=== PATIENT | female | born 1970 | race Caucasian/White ===

== ENCOUNTER 2019-07-08 13:31 | Inpatient (IN) | payer SELFPAY ==
--- NOTE | 2019-07-08 13:53 | ER Document Report ---
ED Medical Screen (RME) - General Chief Complaint: Breathing Difficulty Stated Complaint: DIFFICULTY BREATHING Time Seen by Provider: 07/08/19 13:49 Primary Care Provider: JOON HAMMER PA-C [Primary Care Provider] - Follow up as needed Notes: 49-year-old female with history of asthma presents for difficulty breathing for the last 3 weeks. Patient states her PCP sent her over. Patient was originally ED 88% in triage and was placed on 2 L with improvement in O2 sats. Decreased lung sounds throughout. Patient also states she has had a cough that is been nonproductive. I have greeted and performed a rapid initial assessment of this patient. A comprehensive ED assessment and evaluation of the patient, analysis of test results and completion of the medical decision making process with be conducted by additional ED providers. - Related Data Allergies/Adverse Reactions: No Known Allergies Allergy (Unverified 06/16/11 15:05) Past Medical History - Past Medical History Cardiac Medical History: Reports: Hx Hypertension Past Surgical History: Reports: Hx Tubal Ligation - Immunizations Hx Diphtheria, Pertussis, Tetanus Vaccination: Yes Doctor's Discharge - Discharge Referrals: JOON HAMMER PA-C [Primary Care Provider] - Follow up as needed
[2019-07-08] MEDS ORDERED: METHYLPREDNISOLONE INJ 125 MG/2 ML SDV IV ONE (13:54)
[2019-07-08] MEDS ORDERED: IPRATROPIUM/ALBUTEROL 0.5-2.5 MG/3 ML AMPUL NEB ONE (13:54)
[2019-07-08 14:39] LABS: ABSOLUTE BASOPHILS # (AUTO) 0.1 10^3/uL (0.0-0.2); ABSOLUTE EOSINOPHILS # (AUTO) 0.1 10^3/uL (0.0-0.6); ABSOLUTE MONOCYTES (AUTO) 0.6 10^3/uL (0.1-1.4); ABSOLUTE NEUT (AUTO) 6.2 10^3/uL (1.7-8.2); BASOPHILS % (AUTO) 0.6 % (0-2); EOSINOPHILS % (AUTO) 1.5 % (0-6); HEMATOCRIT 38.6 % (36.0-47.0); HEMOGLOBIN 12.6 g/dL (12.0-15.5); LYMPHOCYTES % (AUTO) 21.9 % (13-45); MEAN CORPUSCULAR HEMOGLOBIN 27.7 pg (27.0-33.4); MEAN CORPUSCULAR HGB CONC 32.8 g/dL (32.0-36.0); MEAN CORPUSCULAR VOLUME 85 fl (80-97); MONOCYTES % (AUTO) 7.1 % (3-13); PLATELET COUNT 368 10^3/uL (150-450); RED BLOOD COUNT 4.56 10^6/uL (3.72-5.28); RED CELL DISTRIBUTION WIDTH 16.8 % (11.5-14.0); SEGMENTED NEUTROPHILS % (AUTO) 68.9 % (42-78); TOTAL CELLS COUNTED % (AUTO) 100 %
--- NOTE | 2019-07-08 14:47 | RADIOLOGY REPORT (SQ) ---
EXAM DESCRIPTION: CHEST 2 VIEWS COMPLETED DATE/TIME: 07/08/2019 2:37 pm REASON FOR STUDY: cough, dyspnea COMPARISON: None. EXAM PARAMETERS: NUMBER OF VIEWS: two views TECHNIQUE: Digital Frontal and Lateral radiographic views of the chest acquired. RADIATION DOSE: NA LIMITATIONS: none FINDINGS: LUNGS AND PLEURA: No focal consolidation. Mild perihilar interstitial opacities. No pleu ral effusion or pneumothorax. MEDIASTINUM AND HILAR STRUCTURES: No masses or contour abnormalities. HEART AND VASCULAR STRUCTURES: Enlarged cardiac silhouette. BONES: No acute findings. HARDWARE: None in the chest. OTHER: No other significant finding. IMPRESSION: Enlarged cardiac silhouette with prominent interstitium, possible mild interstitial tre a or atypical infection. Recommend correlation with symptoms. No focal consolidation. No pleural e ffusion. TECHNICAL DOCUMENTATION: JOB ID: [id number] [email or web address] All Rights Reserved Reading location - IP/workstation name: [email or web address]
--- NOTE | 2019-07-08 14:53 | EKG REPORT ---
SEVERITY:- NORMAL ECG - SINUS RHYTHM : Confirmed by: Indira Villasenor MD 08-Jul-2019 14:52:22
[2019-07-08 14:55] LABS: ALBUMIN 3.3 g/dL (3.5-5.0); ALKALINE PHOSPHATASE 105 U/L (38-126); ASPARTATE AMINO TRANSFERASE 26 U/L (14-36); BILIRUBIN,TOTAL 0.5 mg/dL (0.2-1.3); BLOOD UREA NITROGEN 8 mg/dL (7-20); CALCIUM 8.5 mg/dL (8.4-10.2); CARBON DIOXIDE 34 mmol/L (22-30); GLUCOSE 267 mg/dL (75-110); POTASSIUM 4.4 mmol/L (3.6-5.0); TOTAL PROTEIN 7.5 g/dL (6.3-8.2)
[2019-07-08 15:00] LABS: CHLORIDE 96 mmol/L (98-107)
[2019-07-08 15:02] LABS: ANION GAP 6 (5-19)
--- NOTE | 2019-07-08 15:13 | ER Document Report ---
ED Respiratory Problem - General Chief Complaint: Shortness Of Breath Stated Complaint: DIFFICULTY BREATHING Time Seen by Provider: 07/08/19 13:49 Primary Care Provider: JOON HAMMER PA-C [PHYSICIAN EDITOR IN CHIEF NEWSPAPER] - Follow up as needed Mode of Arrival: Ambulatory Information source: Patient, [facility] Records Notes: This 49-year-old female patient comes to the emergency room complaining of increasing shortness of breath for the past 2 to 3 weeks. She reports she has had a productive cough until yesterday. It was clear to white sputum and none today. She has never had asthma, COPD, or other respiratory problems in the past. There is been no edema. There is no fever. She did not get a flu shot. She has never been a smoker. Patient states she has past history of hypertension, but has not been on medication in quite some time since she lost her insurance. At triage her pulse oximetry reading was 88% on room air. TRAVEL OUTSIDE OF THE [place] IN LAST 30 DAYS: No - Related Data Allergies/Adverse Reactions: No Known Allergies Allergy (Verified 07/08/19 13:55) Past Medical History - General Information source: Patient, [facility] Records - Social History Smoking Status: Never Smoker Cigarette use (# per day): No Chew tobacco use (# tins/day): No Smoking Education Provided: No Frequency of alcohol use: Occasional Drug Abuse: None Lives with: Family Family History: Reviewed & Not Pertinent Patient has suicidal ideation: No Patient has homicidal ideation: No - Past Medical History Cardiac Medical History: Reports: Hx Hypertension Past Surgical History: Reports: Hx Tubal Ligation - Immunizations Hx Diphtheria, Pertussis, Tetanus Vaccination: Yes Review of Systems - Review of Systems Constitutional: No symptoms reported EENT: No symptoms reported Cardiovascular: Dyspnea Respiratory: Cough, Short of breath Gastrointestinal: No symptoms reported Genitourinary: No symptoms reported Musculoskeletal: No symptoms reported Skin: No symptoms reported Hematologic/Lymphatic: No symptoms reported Neurological/Psychological: No symptoms reported Physical Exam - Vital signs Vitals: Temp Pulse Resp BP Pulse Ox 98.0 F 98 28 H 156/76 H 89 L 07/08/19 13:48 07/08/19 13:48 07/08/19 13:48 07/08/19 13:48 07/08/19 13:48 Interpretation: Hypoxic, Tachypneic - General General appearance: Alert, Anxious In distress: Mild - HEENT Head: Normocephalic, Atraumatic Eyes: Normal Pupils: PERRL - Respiratory Respiratory status: Tachypnea Breath sounds: Wheezing - Inspiratory/expiratory wheezes - Cardiovascular Rhythm: Regular Heart sounds: Normal auscultation Murmur: No - Abdominal Inspection: Morbidly Obese Bowel sounds: Normal Tenderness: Nontender - Back Back: Normal - Extremities General upper extremity: Normal inspection General lower extremity: Normal inspection - Neurological Neuro grossly intact: Yes - Psychological Associated symptoms: Normal affect, Normal mood - Skin Skin Temperature: Warm Skin Moisture: Dry Skin Color: Normal Course - Vital Signs Vital signs: Temp Pulse Resp BP Pulse Ox 98.0 F 98 28 H 156/76 H 89 L 07/08/19 13:48 07/08/19 13:48 07/08/19 13:48 07/08/19 13:48 07/08/19 13:48 - Laboratory Result Diagrams: 07/08/19 14:15 07/08/19 14:15 Laboratory results interpreted by me: 07/08/19 07/08/19 07/08/19 14:15 14:15 14:15 RDW 16.8 H Carbonic Acid ABG pCO2 ABG pO2 ABG HCO3 ABG Total CO2 ABG O2 Saturation Sodium 135.8 L Chloride 96 L Carbon Dioxide 34 H Glucose 267 H NT-Pro-B Natriuret Pep 308 H Albumin 3.3 L 07/08/19 15:56 RDW Carbonic Acid 1.45 H ABG pCO2 48.2 H ABG pO2 67.1 L ABG HCO3 31.1 H ABG Total CO2 32.6 H ABG O2 Saturation 93.6 L Sodium Chloride Carbon Dioxide Glucose NT-Pro-B Natriuret Pep Albumin - Diagnostic Test Radiology reviewed: Image reviewed, Reports reviewed - Chest x-ray shows cardiac enlargement with interstitial edema versus atypical infection. - EKG Interpretation by Me EKG shows normal: Sinus rhythm, [place], Intervals, QRS Complexes, ST-T Waves Rate: Normal - 72 Rhythm: NSR - Consults Dr. Tracey Time consulted: 16:15 Consulted provider: will come to ER Discharge - Discharge Clinical Impression: Acute bronchitis with bronchospasm, Hypoxemia requiring supplemental oxygen, P rimary atypical interstitial pneumonia Condition: Stable Disposition: ADMITTED INPATIENT Admitting Provider: Alexy (Hospitalist) Unit Admitted: Medical Floor Referrals: JOON HAMMER PA-C [PHYSICIAN EDITOR IN CHIEF NEWSPAPER] - Follow up as needed
[2019-07-08] MEDS ORDERED: LEVOFLOXACIN 750 MG/D5W RTU 750 MG/150 ML RTUPB IV ONE (16:07)
[2019-07-08 16:12] LABS: ARTERIAL BLOOD BASE EXCESS 5.8 mmol/L; ARTERIAL BLOOD H2CO3 1.45 mmol/L (1.05-1.35); ARTERIAL BLOOD HCO3 31.1 mmol/L (20-24); ARTERIAL BLOOD O2 SATURATION 93.6 % (94-98); ARTERIAL BLOOD PCO2 48.2 mmHg (35-45); ARTERIAL BLOOD PH 7.43 (7.35-7.45); ARTERIAL BLOOD PO2 67.1 mmHg (80-100); ARTERIAL BLOOD TOTAL CO2 32.6 mmol/L (21-25)
[2019-07-08 16:13] LABS: ARTERIAL BLOOD FIO2 ROOM AIR
[2019-07-08] MEDS: MAGNESIUM SULFATE/D5W 1 GM/100 ML RTUPB IV SCH ×2 (16:14→17:53)
[2019-07-08] MEDS ORDERED: MAG HYDROX/AL HYDROX/SIMETH SUSP 30 ML UDCUP PO PRN (17:47)
[2019-07-08] MEDS ORDERED: ONDANSETRON HCL INJ/PF 4 MG/2 ML SDV IV PRN (17:47)
[2019-07-08] MEDS ORDERED: ACETAMINOPHEN 325 MG TABLET PO PRN (17:47)
[2019-07-08] MEDS ORDERED: METOPROLOL TARTRATE PF/INJ 5 MG/5 ML SDV IV PRN (18:49)
--- NOTE | 2019-07-08 18:51 | PDOC H&P ---
History of Present Illness Admission Date/PCP: 07/08/19 16:22 KALIN REID History of Present Illness: RHIANNA NUNO is a 49 year old female past medical history of untreated asthma, morbid obesity, untreated hypertension, presenting to ED complaining of worsening shortness of breath for the last 2 to 3 days associated with productive cough which has turned into nonproductive cough as of yesterday. Denies any recent travel but stating that several of her grandkids have been sick around her. Denies any fever, chills, chest pain, nausea, vomiting, diarrhea, constipation, weight changes, headache, numbness, tingling or any urinary symptoms. In ED he was found to be saturating 88% on room air and hospital was consulted for admission. Past Medical History Cardiac Medical History: Reports: Hypertension Past Surgical History Past Surgical History: Reports: Tubal Ligation Social History Lives with: Family Smoking Status: Never Smoker Electronic Cigarette use?: No Family History Family History: Reviewed & Not Pertinent Parental Family History Reviewed: Yes Children Family History Reviewed: Yes Sibling(s) Family History Reviewed.: Yes Medication/Allergy Home Medications: No Home Medications 07/08/19 Allergies/Adverse Reactions: No Known Allergies Allergy (Verified 07/08/19 13:55) Physical Exam Vital Signs: Temp Pulse Resp BP Pulse Ox 98.0 F 98 28 H 156/76 H 89 L 07/08/19 13:48 07/08/19 13:48 07/08/19 13:48 07/08/19 13:48 07/08/19 13:48 Intake & Output 07/07/19 07/08/19 07/09/19 06:59 06:59 06:59 Intake Total 100 Balance 100 Weight 133 kg General appearance: PRESENT: morbidly obese Head exam: PRESENT: atraumatic, normocephalic Respiratory exam: PRESENT: clear to auscultation antonella. ABSENT: rales, rhonchi, wheezes Cardiovascular exam: PRESENT: RRR. ABSENT: diastolic murmur, rubs, systolic murmur Pulses: PRESENT: normal dorsalis pedis pul GI/Abdominal exam: PRESENT: normal bowel sounds, soft. ABSENT: distended, guarding, mass, organolmegaly, rebound, tenderness Neurological exam: PRESENT: alert, awake, oriented to person, oriented to place, oriented to time, oriented to situation, CN II-XII grossly intact. ABSENT: motor sensory deficit Results Laboratory Results: 07/08/19 14:15 07/08/19 14:15 07/08/19 07/08/19 07/08/19 14:15 14:15 15:56 WBC 9.0 RBC 4.56 Hgb 12.6 Hct 38.6 MCV 85 MCH 27.7 MCHC 32.8 RDW 16.8 H Plt Count 368 Seg Neutrophils % 68.9 Carbonic Acid 1.45 H HCO3/H2CO3 Ratio 21:1 ABG pH 7.43 ABG pCO2 48.2 H ABG pO2 67.1 L ABG HCO3 31.1 H ABG O2 Saturation 93.6 L ABG Base Excess 5.8 FiO2 ROOM AIR Sodium 135.8 L Potassium 4.4 Chloride 96 L Carbon Dioxide 34 H Anion Gap 6 BUN 8 Creatinine 0.52 Est GFR ( Amer) > 60 Glucose 267 H Calcium 8.5 Total Bilirubin 0.5 AST 26 Alkaline Phosphatase 105 Total Protein 7.5 Albumin 3.3 L 07/08/19 07/08/19 14:15 14:15 Troponin I 0.016 NT-Pro-B Natriuret Pep 308 H Impressions: Chest X-Ray 07/08/19 13:54 IMPRESSION: Enlarged cardiac silhouette with prominent interstitium, possible mild interstitial edema or atypical infection. Recommend correlation with symptoms. No focal consolidation. No pleural effusion. Assessment and Plan - Diagnosis (1) Acute respiratory failure with hypoxemia Is this a current diagnosis for this admission?: Yes Plan: Likely due to asthma exacerbation called by recent upper respiratory infection. Admit to telemetry, IV steroids, empiric IV antibiotics, duo nebs, ICS, LABA, LABA. (2) Morbid obesity Is this a current diagnosis for this admission?: Yes Plan: BMI 58.6. Denies any history of hypothyroidism. Denies any symptoms of hypothyroidism. Diet and lifestyle modification recommended. Will obtain TSH. (3) Upper respiratory infection Is this a current diagnosis for this admission?: Yes Plan: Plan as per #1. (4) Asthma exacerbation Qualifiers: Asthma severity: moderate Is this a current diagnosis for this admission?: Yes Plan: History of untreated asthma. Denies ever being hospitalized or intubated for asthma exacerbation. Plan as per 1.
[2019-07-08] MEDS: IPRATROPIUM/ALBUTEROL 0.5-2.5 MG/3 ML AMPUL NEB SCH (20:23)
[2019-07-08] MEDS: METHYLPREDNISOLONE INJ 40 MG/1 ML SDV IV SCH (21:38)
[2019-07-08] MEDS: FAMOTIDINE 20 MG TABLET PO SCH (21:39)
[2019-07-08] MEDS: HYDRALAZINE HCL INJ/PF 20 MG/1 ML SDV IV PRN (21:39)
[2019-07-09] MEDS: METHYLPREDNISOLONE INJ 40 MG/1 ML SDV IV SCH ×3 (05:03→21:36)
[2019-07-09] MEDS: HYDRALAZINE HCL INJ/PF 20 MG/1 ML SDV IV PRN ×2 (05:03→21:36)
[2019-07-09 06:16] LABS: ABSOLUTE BASOPHILS # (AUTO) 0.1 10^3/uL (0.0-0.2); ABSOLUTE LYMPHOCYTES (AUTO) 1.2 10^3/uL (0.5-4.7); ABSOLUTE MONOCYTES (AUTO) 0.2 10^3/uL (0.1-1.4); ABSOLUTE NEUT (AUTO) 12.6 10^3/uL (1.7-8.2); BASOPHILS % (AUTO) 0.5 % (0-2); HEMATOCRIT 41.7 % (36.0-47.0); HEMOGLOBIN 13.3 g/dL (12.0-15.5); LYMPHOCYTES % (AUTO) 8.7 % (13-45); MEAN CORPUSCULAR HGB CONC 31.9 g/dL (32.0-36.0); MEAN CORPUSCULAR VOLUME 85 fl (80-97); MONOCYTES % (AUTO) 1.3 % (3-13); PLATELET COUNT 431 10^3/uL (150-450); RED BLOOD COUNT 4.92 10^6/uL (3.72-5.28); RED CELL DISTRIBUTION WIDTH 17.1 % (11.5-14.0); SEGMENTED NEUTROPHILS % (AUTO) 89.5 % (42-78); TOTAL CELLS COUNTED % (AUTO) 100 %; WHITE BLOOD COUNT 14.1 10^3/uL (4.0-10.5)
[2019-07-09 06:38] LABS: CHOLESTEROL 230.55 mg/dL (0-200); TRIGLYCERIDES 145 mg/dL (<150)
[2019-07-09 06:49] LABS: DIRECT LDL 165 mg/dL (<100)
[2019-07-09] MEDS ORDERED: LISINOPRIL 10 MG TABLET PO SCH ×2 (08:00→18:00)
[2019-07-09] MEDS: IPRATROPIUM/ALBUTEROL 0.5-2.5 MG/3 ML AMPUL NEB SCH ×3 (08:33→20:09)
[2019-07-09] MEDS: LEVOFLOXACIN 500 MG TABLET PO SCH (09:22)
[2019-07-09] MEDS: DOCUSATE SODIUM 100 MG CAPSULE PO SCH (09:26)
[2019-07-09] MEDS: ENOXAPARIN SODIUM INJ 40 MG/0.4 ML DISP.SYRIN SUBCUT SCH (09:26)
[2019-07-09] MEDS: FAMOTIDINE 20 MG TABLET PO SCH ×2 (09:26→21:37)
[2019-07-09] MEDS ORDERED: DEXTROSE 40% GEL 15 GM TUBE PO PRN ×4 (12:11→17:29)
[2019-07-09] MEDS ORDERED: GLUCAGON,HUMAN RECOMB 1 MG INJ IM PRN ×2 (12:11→17:29)
[2019-07-09] MEDS ORDERED: DEXTROSE 50%-WATER 25 GM/50 ML DISP.SYRIN IV PRN ×4 (12:11→17:29)
--- NOTE | 2019-07-09 12:18 | PDOC PROGRESS REPORT ---
Subjective Progress Note for:: 07/09/19 Subjective:: RHIANNA NUNO is a 49 year old female past medical history of untreated asthma, morbid obesity, untreated hypertension, presenting to ED complaining of worsening shortness of breath for the last 2 to 3 days associated with productive cough which has turned into nonproductive cough as of yesterday. Denies any recent travel but stating that several of her grandkids have been sick around her. Denies any fever, chills, chest pain, nausea, vomiting, diarrhea, constipation, weight changes, headache, numbness, tingling or any urinary symptoms. In ED he was found to be saturating 88% on room air and hospital was consulted for admission. 07/09/2019. No acute events overnight. Comfortably sitting in bed in no apparent distress on supplemental oxygen, sitting when she tried to walk to the restroom she noted to get short of breath otherwise denies any fever, chills, nausea, vomiting, diarrhea, constipation or any urinary symptoms. P.o. tolerant. Having normal bowel and bladder movement. Cough is improving. Reason For Visit: ACUTE HYPOXIC RESPIRATORY FAILURE Physical Exam Vital Signs: Temp Pulse Resp BP Pulse Ox 97.8 F 114 H 18 126/56 H 94 07/09/19 08:00 07/09/19 08:33 07/09/19 08:33 07/09/19 08:00 07/09/19 08:33 Intake & Output 07/08/19 07/09/19 07/10/19 06:59 06:59 06:59 Intake Total 800 Balance 800 Weight 131.7 kg General appearance: PRESENT: morbidly obese Head exam: PRESENT: atraumatic, normocephalic Respiratory exam: PRESENT: decreased breath sounds, prolonged expiratory phas, wheezes. ABSENT: rales, rhonchi Cardiovascular exam: PRESENT: RRR. ABSENT: diastolic murmur, rubs, systolic murmur GI/Abdominal exam: PRESENT: normal bowel sounds, soft. ABSENT: distended, guarding, mass, organolmegaly, rebound, tenderness Neurological exam: PRESENT: alert, awake, oriented to person, oriented to place, oriented to time, oriented to situation, CN II-XII grossly intact. ABSENT: motor sensory deficit Results Laboratory Results: 07/09/19 04:41 07/08/19 14:15 07/08/19 07/08/19 07/08/19 14:15 14:15 15:56 WBC 9.0 RBC 4.56 Hgb 12.6 Hct 38.6 MCV 85 MCH 27.7 MCHC 32.8 RDW 16.8 H Plt Count 368 Seg Neutrophils % 68.9 Carbonic Acid 1.45 H HCO3/H2CO3 Ratio 21:1 ABG pH 7.43 ABG pCO2 48.2 H ABG pO2 67.1 L ABG HCO3 31.1 H ABG O2 Saturation 93.6 L ABG Base Excess 5.8 FiO2 ROOM AIR Sodium 135.8 L Potassium 4.4 Chloride 96 L Carbon Dioxide 34 H Anion Gap 6 BUN 8 Creatinine 0.52 Est GFR ( Amer) > 60 Glucose 267 H Calcium 8.5 Magnesium Total Bilirubin 0.5 AST 26 Alkaline Phosphatase 105 Total Protein 7.5 Albumin 3.3 L Triglycerides Cholesterol LDL Cholesterol Direct VLDL Cholesterol HDL Cholesterol Lipase TSH 07/09/19 07/09/19 07/09/19 04:41 04:41 04:41 WBC 14.1 H RBC 4.92 Hgb 13.3 Hct 41.7 MCV 85 MCH 27.0 MCHC 31.9 L RDW 17.1 H Plt Count 431 Seg Neutrophils % 89.5 H Carbonic Acid HCO3/H2CO3 Ratio ABG pH ABG pCO2 ABG pO2 ABG HCO3 ABG O2 Saturation ABG Base Excess FiO2 Sodium Potassium Chloride Carbon Dioxide Anion Gap BUN Creatinine Est GFR ( Amer) Glucose Calcium Magnesium 2.3 Total Bilirubin AST Alkaline Phosphatase Total Protein Albumin Triglycerides 145 Cholesterol 230.55 H LDL Cholesterol Direct 165 H VLDL Cholesterol 29.0 HDL Cholesterol 53 Lipase 101.5 TSH 0.72 07/08/19 07/08/19 14:15 14:15 Troponin I 0.016 NT-Pro-B Natriuret Pep 308 H Impressions: Chest X-Ray 07/08/19 13:54 IMPRESSION: Enlarged cardiac silhouette with prominent interstitium, possible mild interstitial edema or atypical infection. Recommend correlation with symptoms. No focal consolidation. No pleural effusion. Assessment and Plan - Diagnosis (1) Acute respiratory failure with hypoxemia Is this a current diagnosis for this admission?: Yes Plan: Improving. SPO2 WNL on 2 L. Still complaining of dyspnea on exertion. Likely due to asthma exacerbation called by recent upper respiratory infection. Continue IV steroids, empiric antibiotics, duo nebs, ICS, LABA, LABA, incentive spirometry, pulmonary toileting. (2) Morbid obesity Is this a current diagnosis for this admission?: Yes Plan: BMI 58.6. TSH WNL. Diet and lifestyle modification recommended. Likely candidate for bariatric intervention. (3) Upper respiratory infection Is this a current diagnosis for this admission?: Yes Plan: Plan as per #1. Will obtain rapid influenza. (4) Asthma exacerbation Qualifiers: Asthma severity: moderate Is this a current diagnosis for this admission?: Yes Plan: History of untreated asthma. Denies ever being hospitalized or intubated for asthma exacerbation. Plan as per 1. (5) Diabetes mellitus Qualifiers: Diabetes mellitus type: type 2 Is this a current diagnosis for this admission?: Yes Plan: Newly diagnosed. Hemoglobin A1c 9.7. Unfortunate patient will not be a candidate for insulin therapy due to financial reasons. We will start on metformin 500 mg p.o. twice daily to be uptitrated 2000 mg p.o. twice daily. We will start on glyburide 5 mg p.o. twice daily. Diabetic diet, sliding scale insulin, Accu-Chek, hypoglycemic protocol. Diabetic education. (6) Hypercholesterolemia Is this a current diagnosis for this admission?: Yes Plan: ASCVD risk score of 10%. We will start on high intensity statin. Outpatient PCP follow-up for LFT monitoring. (7) Hypertension Is this a current diagnosis for this admission?: Yes Plan: History of uncontrolled hypertension for financial reasons. Given newly diagnosed diabetes will start on CINDI. Monitor vitals. Adjust meds as needed. Outpatient PCP follow-up.
[2019-07-09] MEDS: ASPIRIN 81 MG TABLET, CHEWABLE PO SCH (14:39)
[2019-07-09] MEDS ORDERED: INSULIN LISPRO 100 UNIT/ML 3 ML VIAL SUBCUT SCH (16:00)
[2019-07-09] MEDS: METFORMIN HCL 500 MG TABLET PO SCH (16:55)
[2019-07-09] MEDS: GLYBURIDE 5 MG TABLET PO SCH (16:55)
[2019-07-09 17:03] LABS: A TYPE INFLUENZA AG NEGATIVE (NEGATIVE); B INFLUENZA AG NEGATIVE (NEGATIVE)
[2019-07-09] MEDS: INSULIN LISPRO 100 UNIT/ML 3 ML VIAL SUBCUT SCH ×2 (18:37→21:37)
[2019-07-09] MEDS ORDERED: INSULIN GLARGINE,HUM.REC.ANLOG 1,000 UNIT/10 ML VIAL (PYX) SUBCUT ONE (18:41)
[2019-07-09] MEDS: INSULIN GLARGINE,HUM.REC.ANLOG 1,000 UNIT/10 ML VIAL SUBCUT SCH (18:42)
[2019-07-09 19:02] LABS: APPEARANCE,URINE CLEAR; BILIRUBIN,URINE NEGATIVE (NEGATIVE); COLOR,URINE STRAW; GLUCOSE, URINE >=500 mg/dL (NEGATIVE); KETONES,URINE NEGATIVE (NEGATIVE); LEUKOCYTE ESTERASE,URINE NEGATIVE (NEGATIVE); NITRITE,URINE NEGATIVE (NEGATIVE); PROTEIN,URINE 30 mg/dL (NEGATIVE); URINE SPECIFIC GRAVITY 1.018; UROBILINOGEN,URINE NEGATIVE mg/dL (<2.0)
[2019-07-09 19:14] LABS: URINE CREATININE 37.7 mg/dL (15-278); URINE PROTEIN 28.1 mg/dL (<12)
[2019-07-10] MEDS: METHYLPREDNISOLONE INJ 40 MG/1 ML SDV IV SCH ×3 (05:03→21:48)
[2019-07-10 06:12] LABS: ABSOLUTE LYMPHOCYTES (AUTO) 1.3 10^3/uL (0.5-4.7); ABSOLUTE MONOCYTES (AUTO) 0.6 10^3/uL (0.1-1.4); ABSOLUTE NEUT (AUTO) 17.3 10^3/uL (1.7-8.2); BASOPHILS % (AUTO) 0.1 % (0-2); HEMATOCRIT 40.6 % (36.0-47.0); HEMOGLOBIN 13.2 g/dL (12.0-15.5); LYMPHOCYTES % (AUTO) 6.8 % (13-45); MEAN CORPUSCULAR HEMOGLOBIN 27.5 pg (27.0-33.4); MEAN CORPUSCULAR HGB CONC 32.4 g/dL (32.0-36.0); MEAN CORPUSCULAR VOLUME 85 fl (80-97); MONOCYTES % (AUTO) 3.2 % (3-13); PLATELET COUNT 451 10^3/uL (150-450); RED BLOOD COUNT 4.79 10^6/uL (3.72-5.28); RED CELL DISTRIBUTION WIDTH 17.2 % (11.5-14.0); SEGMENTED NEUTROPHILS % (AUTO) 89.9 % (42-78); TOTAL CELLS COUNTED % (AUTO) 100 %; WHITE BLOOD COUNT 19.3 10^3/uL (4.0-10.5)
[2019-07-10] MEDS: IPRATROPIUM/ALBUTEROL 0.5-2.5 MG/3 ML AMPUL NEB SCH ×3 (08:20→19:42)
[2019-07-10] MEDS ORDERED: CARVEDILOL 6.25 MG TABLET ONE (08:26)
[2019-07-10] MEDS: INSULIN LISPRO 100 UNIT/ML 3 ML VIAL SUBCUT SCH ×4 (08:30→21:48)
[2019-07-10] MEDS: METFORMIN HCL 500 MG TABLET PO SCH ×2 (08:32→16:27)
[2019-07-10] MEDS: GLYBURIDE 5 MG TABLET PO SCH ×2 (08:32→16:27)
[2019-07-10] MEDS: CARVEDILOL 6.25 MG TABLET PO SCH ×2 (08:48→21:48)
[2019-07-10] MEDS: DOCUSATE SODIUM 100 MG CAPSULE PO SCH (10:59)
[2019-07-10] MEDS: ASPIRIN 81 MG TABLET, CHEWABLE PO SCH (11:00)
[2019-07-10] MEDS: ENOXAPARIN SODIUM INJ 40 MG/0.4 ML DISP.SYRIN SUBCUT SCH (11:00)
[2019-07-10] MEDS: INSULIN GLARGINE,HUM.REC.ANLOG 1,000 UNIT/10 ML VIAL SUBCUT SCH (11:00)
[2019-07-10] MEDS: LEVOFLOXACIN 500 MG TABLET PO SCH (11:00)
[2019-07-10] MEDS: LISINOPRIL 10 MG TABLET PO SCH (11:00)
[2019-07-10] MEDS: FAMOTIDINE 20 MG TABLET PO SCH ×2 (11:12→21:00)
--- NOTE | 2019-07-10 13:40 | PDOC PROGRESS REPORT ---
Subjective Progress Note for:: 07/10/19 Subjective:: RHIANNA NUNO is a 49 year old female past medical history of untreated asthma, morbid obesity, untreated hypertension, presenting to ED complaining of worsening shortness of breath for the last 2 to 3 days associated with productive cough which has turned into nonproductive cough as of yesterday. Denies any recent travel but stating that several of her grandkids have been sick around her. Denies any fever, chills, chest pain, nausea, vomiting, diarrhea, constipation, weight changes, headache, numbness, tingling or any urinary symptoms. In ED he was found to be saturating 88% on room air and hospital was consulted for admission. 07/09/2019. No acute events overnight. Comfortably sitting in bed in no apparent distress on supplemental oxygen, sitting when she tried to walk to the restroom she noted to get short of breath otherwise denies any fever, chills, nausea, vomiting, diarrhea, constipation or any urinary symptoms. P.o. tolerant. Having normal bowel and bladder movement. Cough is improving. 07/10/2019. No acute events overnight. Comfortably sitting resting with no apparent distress, still requiring supplemental oxygen, gets short of breath off oxygen, denies any fever, chills, nausea, vomiting, diarrhea, constipation or any urinary symptoms. Reason For Visit: ACUTE HYPOXIC RESPIRATORY FAILURE Physical Exam Vital Signs: Temp Pulse Resp BP Pulse Ox 97.4 F 101 H 19 134/57 H 93 07/10/19 03:49 07/10/19 08:20 07/10/19 08:20 07/10/19 03:49 07/10/19 08:20 Intake & Output 07/09/19 07/10/19 07/11/19 06:59 06:59 06:59 Intake Total 800 1740 Output Total 1200 Balance 800 540 Weight 131.7 kg 133.9 kg General appearance: PRESENT: morbidly obese Head exam: PRESENT: atraumatic, normocephalic Respiratory exam: PRESENT: clear to auscultation antonella. ABSENT: rales, rhonchi, wheezes Cardiovascular exam: PRESENT: RRR. ABSENT: diastolic murmur, rubs, systolic murmur GI/Abdominal exam: PRESENT: normal bowel sounds, soft. ABSENT: distended, guarding, mass, organolmegaly, rebound, tenderness Neurological exam: PRESENT: alert, awake, oriented to person, oriented to place, oriented to time, oriented to situation, CN II-XII grossly intact. ABSENT: motor sensory deficit Results Laboratory Results: 07/10/19 04:56 07/08/19 14:15 07/09/19 07/10/19 18:27 04:56 WBC 19.3 H RBC 4.79 Hgb 13.2 Hct 40.6 MCV 85 MCH 27.5 MCHC 32.4 RDW 17.2 H Plt Count 451 H Seg Neutrophils % 89.9 H Urine Color STRAW Urine Appearance CLEAR Urine pH 6.0 Ur Specific [place] 1.018 Urine Protein 30 H Urine Glucose (UA) >=500 H Urine Ketones NEGATIVE Urine Blood NEGATIVE Urine Nitrite NEGATIVE Ur Leukocyte Esterase NEGATIVE Urine WBC (Auto) 0 07/08/19 07/08/19 07/09/19 14:15 14:15 12:50 Troponin I 0.016 0.016 NT-Pro-B Natriuret Pep 308 H Impressions: Chest X-Ray 07/08/19 13:54 IMPRESSION: Enlarged cardiac silhouette with prominent interstitium, possible mild interstitial edema or atypical infection. Recommend correlation with symptoms. No focal consolidation. No pleural effusion. Assessment and Plan - Diagnosis (1) Acute respiratory failure with hypoxemia Is this a current diagnosis for this admission?: Yes Plan: Improving. SPO2 WNL on 2 L. Still complaining of dyspnea on exertion. Likely due to asthma exacerbation caused by recent upper respiratory infection. Continue IV steroids, empiric antibiotics, duo nebs, ICS, LABA, LABA, incentive spirometry, pulmonary toileting. Note. Patient may also have underlying CAD or CHF. Patient very high risk for CAD. Given family history of CAD, morbid obesity, hypertension, hyperlipidemia and diabetes. Patient presenting with troponin of 0.016 and a BNP of 666 and chest x-ray suggestive of cardiomegaly. EKG sinus rhythm. Given above history I consulted Dr. Serna psychiatric np for possible inpatient further work-up for risk stratification. Based on my conversation with Dr. Corona he suggested that patient can get a 2D echo on this admission and he will follow her as outpatient for further m anagement. (2) Morbid obesity Is this a current diagnosis for this admission?: Yes Plan: BMI 58.6. TSH WNL. Diet and lifestyle modification recommended. Likely candidate for bariatric intervention. (3) Upper respiratory infection Is this a current diagnosis for this admission?: Yes Plan: Plan as per #1. Will obtain rapid influenza. (4) Asthma exacerbation Qualifiers: Asthma severity: moderate Is this a current diagnosis for this admission?: Yes Plan: History of untreated asthma. Denies ever being hospitalized or intubated for asthma exacerbation. Plan as per 1. (5) Diabetes mellitus Qualifiers: Diabetes mellitus type: type 2 Is this a current diagnosis for this admission?: Yes Plan: Newly diagnosed. Hemoglobin A1c 9.7. Improving. Not optimized. Likely worsened due to recent addition of IV steroids for asthma exacerbation. Unfortunately patient will not be a candidate for insulin therapy due to financial reasons. We will start on metformin 500 mg p.o. twice daily to be uptitrated 2000 mg p.o. twice daily. We will start on glyburide 5 mg p.o. twice daily. Diabetic diet, basal insulin, sliding scale insulin, Accu-Chek, hypoglycemic protocol. Diabetic education. (6) Hypercholesterolemia Is this a current diagnosis for this admission?: Yes Plan: ASCVD risk score of 10%. We will start on high intensity statin. Outpatient PCP follow-up for LFT monitoring. (7) Hypertension Is this a current diagnosis for this admission?: Yes Plan: Improving. Not optimized. History of uncontrolled hypertension for financial reasons. Continue lisinopril 40 mg p.o. daily. We will add low-dose carvedilol. Monitor vitals. Adjust meds as needed. Outpatient PCP follow-up.
[2019-07-11] MEDS: METHYLPREDNISOLONE INJ 40 MG/1 ML SDV IV SCH (05:32)
[2019-07-11] MEDS: IPRATROPIUM/ALBUTEROL 0.5-2.5 MG/3 ML AMPUL NEB SCH ×3 (07:48→19:48)
[2019-07-11] MEDS: INSULIN LISPRO 100 UNIT/ML 3 ML VIAL SUBCUT SCH ×4 (07:55→21:53)
[2019-07-11] MEDS: METFORMIN HCL 500 MG TABLET PO SCH ×2 (07:55→17:43)
[2019-07-11] MEDS: GLYBURIDE 5 MG TABLET PO SCH ×2 (07:55→17:43)
[2019-07-11] MEDS: FAMOTIDINE 20 MG TABLET PO SCH ×2 (10:54→21:31)
[2019-07-11] MEDS: DOCUSATE SODIUM 100 MG CAPSULE PO SCH (10:54)
[2019-07-11] MEDS: ENOXAPARIN SODIUM INJ 40 MG/0.4 ML DISP.SYRIN SUBCUT SCH (10:54)
[2019-07-11] MEDS: ASPIRIN 81 MG TABLET, CHEWABLE PO SCH (11:10)
[2019-07-11] MEDS: LISINOPRIL 10 MG TABLET PO SCH (11:10)
[2019-07-11] MEDS: CARVEDILOL 6.25 MG TABLET PO SCH ×2 (11:10→21:32)
[2019-07-11] MEDS: LEVOFLOXACIN 500 MG TABLET PO SCH (11:10)
[2019-07-11] MEDS: INSULIN GLARGINE,HUM.REC.ANLOG 1,000 UNIT/10 ML VIAL SUBCUT SCH (11:11)
[2019-07-11] MEDS ORDERED: INFLUENZA QUAD (6MOS+) 2019-20 VAC 0.5 ML SYR IM ONE (14:00)
--- NOTE | 2019-07-11 17:58 | PDOC PROGRESS REPORT ---
Subjective Progress Note for:: 07/11/19 Subjective:: Patient feels well and ready to go home. Patient denies any shortness of breath at the moment. Patient would also like to try out oral anti-glycemic medications at the moment and hold off on insulin for now given financial difficulties. Reason For Visit: ACUTE HYPOXIC RESP FAILURE, NEW ONSET DM Physical Exam Vital Signs: Temp Pulse Resp BP Pulse Ox 97.8 F 87 16 146/82 H 93 07/11/19 16:00 07/11/19 16:00 07/11/19 16:00 07/11/19 16:00 07/11/19 16:00 Intake & Output 07/10/19 07/11/19 07/12/19 06:59 06:59 06:59 Intake Total 1740 1850 1181 Output Total 1200 1520 Balance 351 087 8906 Weight 133.9 kg 135 kg 135 kg General appearance: PRESENT: no acute distress, cooperative Head exam: PRESENT: atraumatic Neck exam: ABSENT: JVD Respiratory exam: PRESENT: clear to auscultation antonella, unlabored. ABSENT: tachypnea, wheezes Cardiovascular exam: PRESENT: RRR, +S1, +S2. ABSENT: tachycardia GI/Abdominal exam: PRESENT: soft. ABSENT: rebound, rigid, tenderness Neurological exam: PRESENT: alert, awake Results Laboratory Results: 07/10/19 04:56 07/08/19 14:15 07/08/19 07/08/19 07/09/19 14:15 14:15 12:50 Troponin I 0.016 0.016 NT-Pro-B Natriuret Pep 308 H Impressions: Chest X-Ray 07/08/19 13:54 IMPRESSION: Enlarged cardiac silhouette with prominent interstitium, possible mild interstitial edema or atypical infection. Recommend correlation with symptoms. No focal consolidation. No pleural effusion. Assessment and Plan - Diagnosis (1) Acute respiratory failure with hypoxemia Is this a current diagnosis for this admission?: Yes Plan: Improving. SPO2 WNL on 2 L bouts 88% on room air this morning. Suspect this is secondary to asthma exacerbation. We will follow-up echocardiogram results. Prior provider had a conversation with Dr. Corona during which he suggested that patient can get a 2D echo on this admission and he will follow her as outpatient for further management. (2) Asthma exacerbation Qualifiers: Asthma severity: moderate Is this a current diagnosis for this admission?: Yes Plan: Continue steroids and nebulizer treatments. Check ambulatory pulse oximetry. (3) Diabetes mellitus Qualifiers: Diabetes mellitus type: type 2 Is this a current diagnosis for this admission?: Yes Plan: Newly diagnosed. Hemoglobin A1c 9.7. Improving. Not optimized. Likely worsened due to recent addition of IV steroids for asthma exacerbation. Patient requesting to be tried on oral anti-glycemic's first because of financial difficulties in terms of using insulin. Patient agrees that she will judiciously follow her blood sugar readings and if after about a month or 2, blood sugar is not controlled adequately, she would then need to transition to insulin. Continue current dose of metformin and glyburide Diabetic education. (4) Hypercholesterolemia Is this a current diagnosis for this admission?: Yes Plan: ASCVD risk score of 10%. Started on high intensity statin (5) Hypertension Is this a current diagnosis for this admission?: Yes Plan: Improving. Not optimized. History of uncontrolled hypertension for financial reasons. Continue lisinopril 40 mg p.o. daily and Coreg. Monitor vitals. Adjust meds as needed. Outpatient PCP follow-up. - Time Time Spent with patient: 15-24 minutes
[2019-07-11] MEDS ORDERED: PREDNISONE 20 MG TABLET PO ONE (18:00)
--- NOTE | 2019-07-12 00:52 | XCELERA REPORT ---
[address] [address] Transthoracic Echocardiogram Report Name: RHIANNA NUNO Age: 49 yrs Gender: Female : 1970 Patient Status: Inpatient Patient Location: [address] [place], [place] [address] Study Date: 07/11/2019 04:43 PM Height: 59 in Weight: 295 lb BSA: 2.2 m2 Procedure: A two-dimensional transthoracic echocardiogram with color flow and Doppler was performed. Study Quality: Poor. Por endocardial defenition. Reason For Study: Acute CHF History: CHF. Ordering Physician: CHINTAN JORDAN Performed By: Radha Dhillon Interpretation Summary Probaly normal La size.Probably no defenite wall motion abnormality.No LVH.Probably normal LVEF of 55%. Cannot assess thrombus , ASD ,VSD,or PFO. Probably normal LA size. Probably no MS or MR,AR,or . There is no tricuspid stenosis. There is a trace amount of tricuspid regurgitation Tricuspid regurgitation jet envelope not well defined to measure RV systolic pressure accurately. There is no pulmonic valvular stenosis. There is a trace amount of pulmonic regurgitation The aortic root is not well visualized. The inferior vena cava was not visualized There is no pericardial effusion. MMode/2D Measurements & Calculations RVDd: 2.4 cm LVIDd: 4.9 cm FS: 37.4 % Ao root diam: 2.6 cm IVSd: 1.2 cm LVIDs: 3.1 cm EDV(Teich): 111.3 ml Ao root area: 5.2 cm2 LVPWd: 1.2 cm ESV(Teich): 36.5 ml LA dimension: 3.0 cm EF(Teich): 67.3 % Doppler Measurements & Calculations MV E max bhupinder: MV P1/2t max bhupinder: Ao V2 max: LV V1 max P.9 cm/sec 118.1 cm/sec 169.4 cm/sec 4.6 mmHg MV A max bhupinder: MV P1/2t: 81.5 msec Ao max PG: LV V1 max: 77.5 cm/sec MVA(P1/2t): 2.7 cm2 11.5 mmHg 107.6 cm/sec MV E/A: 1.6 MV dec slope: 424.7 cm/sec2 MV dec time: 0.21 sec PA V2 max: PI end-d bhupinder: MV P1/2t-pr_phl: 102.7 cm/sec 129.0 cm/sec 81.5 msec PA max P.2 mmHg Left Ventricle Probaly normal La size.Probably no defenite wall motion abnormality.No LVH.Probably normal LVEF of 55%. Doppler measurements suggest normal left ventricular diastolic function. Cannot assess thrombus , ASD ,VSD,or PFO. Right Ventricle The right ventricle is not well visualized secondary to technical limitations. Atria Right atrium not well visualized secondary to technical limitations. Probably normal LA size. Tricuspid Valve There is no tricuspid stenosis. There is a trace amount of tricuspid regurgitation. Tricuspid regurgitation jet envelope not well defined to measure RV systolic pressure accurately. Pulmonic Valve There is no pulmonic valvular stenosis. There is a trace amount of pulmonic regurgitation. Great Vessels The aortic root is not well visualized. The inferior vena cava was not visualized. Effusions There is no pericardial effusion. : CHINTAN JRODAN Lakshmi
[2019-07-12 05:46] LABS: HEMATOCRIT 42.3 % (36.0-47.0); HEMOGLOBIN 13.7 g/dL (12.0-15.5); MEAN CORPUSCULAR HGB CONC 32.4 g/dL (32.0-36.0); MEAN CORPUSCULAR VOLUME 83 fl (80-97); PLATELET COUNT 423 10^3/uL (150-450); RED BLOOD COUNT 5.07 10^6/uL (3.72-5.28); RED CELL DISTRIBUTION WIDTH 17.3 % (11.5-14.0); WHITE BLOOD COUNT 9.7 10^3/uL (4.0-10.5)
[2019-07-12] MEDS: IPRATROPIUM/ALBUTEROL 0.5-2.5 MG/3 ML AMPUL NEB SCH ×3 (08:13→21:08)
[2019-07-12] MEDS: INSULIN LISPRO 100 UNIT/ML 3 ML VIAL SUBCUT SCH ×4 (08:56→21:33)
[2019-07-12] MEDS: ENOXAPARIN SODIUM INJ 40 MG/0.4 ML DISP.SYRIN SUBCUT SCH (11:15)
[2019-07-12] MEDS: DOCUSATE SODIUM 100 MG CAPSULE PO SCH (11:16)
[2019-07-12] MEDS: LEVOFLOXACIN 500 MG TABLET PO SCH (11:20)
[2019-07-12] MEDS: LISINOPRIL 10 MG TABLET PO SCH (11:20)
[2019-07-12] MEDS: METFORMIN HCL 500 MG TABLET PO SCH ×2 (11:21→17:20)
[2019-07-12] MEDS: PREDNISONE 20 MG TABLET PO SCH (11:21)
[2019-07-12] MEDS: CARVEDILOL 6.25 MG TABLET PO SCH ×2 (11:22→21:47)
[2019-07-12] MEDS: ASPIRIN 81 MG TABLET, CHEWABLE PO SCH (11:22)
[2019-07-12] MEDS: FAMOTIDINE 20 MG TABLET PO SCH ×2 (11:22→21:43)
[2019-07-12] MEDS: GLYBURIDE 5 MG TABLET PO SCH ×2 (11:23→17:20)
[2019-07-12] MEDS: INSULIN GLARGINE,HUM.REC.ANLOG 1,000 UNIT/10 ML VIAL SUBCUT SCH (17:20)
--- NOTE | 2019-07-12 18:41 | PDOC PROGRESS REPORT ---
Subjective Progress Note for:: 07/12/19 Subjective:: Patient feels well and ready to go home. Patient denies any shortness of breath at the moment. However patient did desat when ambulated last night on room air to 86%. As a result patient will be unable to go home today. Reason For Visit: ACUTE HYPOXIC RESP FAILURE, NEW ONSET DM Physical Exam Vital Signs: Temp Pulse Resp BP Pulse Ox 97.8 F 77 15 110/58 L 90 L 07/12/19 16:00 07/12/19 16:00 07/12/19 16:00 07/12/19 16:00 07/12/19 16:00 Pulse Oximeter Ambulatory Start: 07/11/19 17:50 Freq: RTDAILY Status: Active Protocol: Document 07/12/19 09:15 [facility] [place]Rec: 07/12/19 09:36 [facility] [place] [id number][place] Exercise Oximetry Treatment Ambulating SpO2 Charge Now Yes Oxygen Delivery Method Room Air FIO2 (% Oxygen) 21 Exercise O2 Saturation by Pulse Oximetry 83 Pulse Rate 110 Respiratory Rate 20 Resting O2 Saturation by Pulse Oximetry 86 Pulse Rate 93 Respiratory Rate 20 Oximetry Exercise Interval (min) 2 Ambulation Distance (ft) 50 Exercise Tolerance Fair Additional RT Notes Other sitting at rest spo2 86 HR 93, standing at rest spo2 85 HR 105 pt returned to 2lpm cannula after one minute, sitting at rest spo2 92, HR 96 Intake & Output 07/11/19 07/12/19 07/13/19 06:59 06:59 06:59 Intake Total 1850 1781 Output Total 1520 Balance 330 1781 Weight 135 kg 138.8 kg General appearance: PRESENT: no acute distress, cooperative Neck exam: ABSENT: JVD Respiratory exam: PRESENT: clear to auscultation antonella, unlabored. ABSENT: tachypnea, wheezes Cardiovascular exam: PRESENT: RRR, +S1, +S2. ABSENT: tachycardia GI/Abdominal exam: PRESENT: normal bowel sounds, soft. ABSENT: rebound, rigid, tenderness Neurological exam: PRESENT: alert, awake Results Laboratory Results: 07/12/19 05:26 07/08/19 14:15 07/12/19 05:26 WBC 9.7 RBC 5.07 Hgb 13.7 Hct 42.3 MCV 83 MCH 27.0 MCHC 32.4 RDW 17.3 H Plt Count 423 07/08/19 07/08/1920 14:15 14:15 12:50 Troponin I 0.016 0.016 NT-Pro-B Natriuret Pep 308 H Impressions: Chest X-Ray 07/08/19 13:54 IMPRESSION: Enlarged cardiac silhouette with prominent interstitium, possible mild interstitial edema or atypical infection. Recommend correlation with symptoms. No focal consolidation. No pleural effusion. Assessment and Plan - Diagnosis (1) Acute respiratory failure with hypoxemia Is this a current diagnosis for this admission?: Yes Plan: Suspect this is secondary to asthma exacerbation. Continue nebulizer and steroid treatments. Perform ambulatory pulse ox tomorrow morning (2) Asthma exacerbation Qualifiers: Asthma severity: moderate Is this a current diagnosis for this admission?: Yes Plan: Continue steroids and nebulizer treatments. Check ambulatory pulse oximetry in a.m. (3) Diabetes mellitus Qualifiers: Diabetes mellitus type: type 2 Is this a current diagnosis for this admission?: Yes Plan: Newly diagnosed. Hemoglobin A1c 9.7. Improving. Not optimized. Likely worsened due to recent addition of IV steroids for asthma exacerbation. Patient requesting to be tried on oral anti-glycemic's first because of financial difficulties in terms of using insulin. Patient agrees that she will judiciously follow her blood sugar readings and if after about a month or 2, blood sugar is not controlled adequately, she would then need to transition to insulin. Continue current dose of metformin and glyburide Diabetic education. (4) Hypercholesterolemia Is this a current diagnosis for this admission?: Yes Plan: ASCVD risk score of 10%. Started on high intensity statin (5) Hypertension Is this a current diagnosis for this admission?: Yes Plan: Improving. Not optimized. History of uncontrolled hypertension for financial reasons. Continue lisinopril 40 mg p.o. daily and Coreg. Monitor vitals. Adjust meds as needed. Outpatient PCP follow-up. Echocardiogram showing normal systolic and diastolic function - Time Time Spent with patient: 15-24 minutes
[2019-07-13] MEDS: IPRATROPIUM/ALBUTEROL 0.5-2.5 MG/3 ML AMPUL NEB SCH (08:02)
[2019-07-13] MEDS: INSULIN LISPRO 100 UNIT/ML 3 ML VIAL SUBCUT SCH ×2 (09:32→12:25)
[2019-07-13] MEDS: METFORMIN HCL 500 MG TABLET PO SCH (09:38)
[2019-07-13] MEDS: LISINOPRIL 10 MG TABLET PO SCH (09:38)
[2019-07-13] MEDS: ASPIRIN 81 MG TABLET, CHEWABLE PO SCH (09:39)
[2019-07-13] MEDS: ENOXAPARIN SODIUM INJ 40 MG/0.4 ML DISP.SYRIN SUBCUT SCH (09:39)
[2019-07-13] MEDS: CARVEDILOL 6.25 MG TABLET PO SCH (09:39)
[2019-07-13] MEDS: LEVOFLOXACIN 500 MG TABLET PO SCH (09:39)
[2019-07-13] MEDS: DOCUSATE SODIUM 100 MG CAPSULE PO SCH (09:39)
[2019-07-13] MEDS: PREDNISONE 20 MG TABLET PO SCH (09:39)
[2019-07-13] MEDS: INSULIN GLARGINE,HUM.REC.ANLOG 1,000 UNIT/10 ML VIAL SUBCUT SCH (09:40)
[2019-07-13] MEDS: FAMOTIDINE 20 MG TABLET PO SCH (09:40)
--- NOTE | 2019-07-13 12:09 | PDOC DISCHARGE SUMMARY ---
Impression - Admit/DC Date/PCP Admission Date/Primary Care Provider: 07/11/19 12:55 KALIN REID Discharge Date: 07/13/19 - Discharge Diagnosis (1) Acute respiratory failure with hypoxemia Is this a current diagnosis for this admission?: Yes (2) Asthma exacerbation Is this a current diagnosis for this admission?: Yes (3) Diabetes mellitus Is this a current diagnosis for this admission?: Yes (4) Hypercholesterolemia Is this a current diagnosis for this admission?: Yes (5) Hypertension Is this a current diagnosis for this admission?: Yes - Additional Information Discharge Diet: Diabetic Discharge Activity: Activity As Tolerated Referrals: JOON HAMMER PA-C [PHYSICIAN PROMOTIONAL REPRESENTATIVE] - VONNIE BREAUX MD [ACTIVE STAFF] - Prescriptions: Glyburide [Diabeta 5 mg Tablet] 5 mg PO BIDACBS #60 tablet Ipratropium/Albuterol Sulfate [Duoneb 3 ml Ampul] 3 ml NEB Q6HP PRN #100 ml PRN Reason: Aspirin [Ecotrin 81 mg EC Tablet] 81 mg PO DAILY #1 pkg Metformin HCl [Glucophage 500 mg Tablet] 500 mg PO BIDACBS #60 tablet Atorvastatin Calcium [Lipitor 40 mg Tablet] 40 mg PO QHS #30 tablet Budesonide/Formoterol Fumarate [Symbicort Hfa 80-4.5 Mcg Inhaler 6.9 gm] 1 puff IH BID #1 inhaler Lisinopril [Zestril] 40 mg PO DAILY #30 tablet Home Medications: Aspirin [Ecotrin 81 mg EC Tablet] 81 mg PO DAILY #1 pkg 07/13/19 Atorvastatin Calcium [Lipitor 40 mg Tablet] 40 mg PO QHS #30 tablet 07/13/19 Budesonide/Formoterol Fumarate [Symbicort Hfa 80-4.5 Mcg Inhaler 6.9 gm] 1 puff IH BID #1 inhaler 07/13/19 Glyburide [Diabeta 5 mg Tablet] 5 mg PO BIDACBS #60 tablet 07/13/19 Ipratropium/Albuterol Sulfate [Duoneb 3 ml Ampul] 3 ml NEB Q6HP PRN #100 ml 07/13/19 Lisinopril [Zestril] 40 mg PO DAILY #30 tablet 07/13/19 Metformin HCl [Glucophage 500 mg Tablet] 500 mg PO BIDACBS #60 tablet 07/13/19 History of Present Illiness History of Present Illness: RHIANNA NUNO is a 49 year old female past medical history of untreated asthma, morbid obesity, untreated hypertension, presenting to ED complaining of worsening shortness of breath for the last 2 to 3 days associated with productive cough which has turned into nonproductive cough as of yesterday. Denies any recent travel but stating that several of her grandkids have been sick around her. Denies any fever, chills, chest pain, nausea, vomiting, diarrhea, constipation, weight changes, headache, numbness, tingling or any urinary symptoms. In ED he was found to be saturating 88% on room air and hospital was consulted for admission. Hospital Course Hospital Course: Patient was admitted to the hospital for treatment of acute asthma exacerbation. She was notably wheezing at the time of admission. Chest x-ray had revealed mild interstitial changes with enlarged cardiac silhouette but no focal consolidation. Patient had no leukocytosis no other findings evident of pneumonia. Patient was started with treatment with nebulizers and steroids as well as Levaquin which he received for a few days in case any contribution of bacterial bronchitis. Patient was also noted to be acute hypoxic respiratory failure with SPO2 dropping below 88% on room air. She required oxygen supplementation for several days but was able to be weaned off oxygen. Today she was ambulated and maintained SPO2 above 90% on room air during ambulation. Patient feels well and is being discharged with Symbicort, DuoNeb for which she has nebulizers and has completed her steroid regimen. During this hospitalization, patient was also noted to have hyperglycemia. She was subsequently diagnosed with diabetes mellitus type 2 after hemoglobin A1c was noted to be 9.7 and blood glucose reading was over 200 even prior to steroid administration. I discussed with patient her need to be discharged on insulin given hemoglobin A1c over 9 but patient preferred to attempt oral anti- glycemic's first and have as such discharge patient on metformin and glyburide. Have given strict instructions to patient to follow-up with her primary care provider with a log of her blood sugar readings. I have also given patient scripts for glucometer device, test strips and lancets. Patient has been placed on aspirin and atorvastatin given elevated ASCVD ten- year risk. Patient has also been started on lisinopril for hypertension. Patient is being discharged in stable conditions. Physical Exam Vital Signs: Temp Pulse Resp BP Pulse Ox 97.8 F 93 15 127/49 H 93 07/13/19 11:57 07/13/19 11:57 07/13/19 11:57 07/13/19 11:57 07/13/19 11:57 Pulse Oximeter Ambulatory Start: 07/11/19 17:50 Freq: RTDAILY Status: Active Protocol: Document 07/13/19 08:00 [facility] [place] (Rec: 07/13/19 08:13 [facility] [place] [id number]) Additional RT Notes Other walk delayed for meal and neb, will returen Exercise Oximetry Treatment Ambulating SpO2 Charge Now No Intake & Output 07/12/19 07/13/19 07/14/19 06:59 06:59 06:59 Intake Total 1781 610 Balance 1781 610 Weight 138.8 kg 135.2 kg General appearance: PRESENT: no acute distress, cooperative Respiratory exam: PRESENT: clear to auscultation antonella Cardiovascular exam: PRESENT: +S1, +S2 Musculoskeletal exam: PRESENT: ambulatory Neurological exam: PRESENT: alert, awake Results Laboratory Results: WBC 9.7 10^3/uL (4.0-10.5) 07/12/19 05:26 RBC 5.07 10^6/uL (3.72-5.28) 07/12/19 05:26 Hgb 13.7 g/dL (12.0-15.5) 07/12/19 05:26 Hct 42.3 % (36.0-47.0) 07/12/19 05:26 MCV 83 fl (80-97) 07/12/19 05:26 MCH 27.0 pg (27.0-33.4) 07/12/19 05:26 MCHC 32.4 g/dL (32.0-36.0) 07/12/19 05:26 RDW 17.3 % (11.5-14.0) H 07/12/19 05:26 Plt Count 423 10^3/uL (150-450) 07/12/19 05:26 Lymph % (Auto) 6.8 % (13-45) L 07/10/19 04:56 [place] % (Auto) 3.2 % (3-13) 07/10/19 04:56 Eos % (Auto) 0.0 % (0-6) 07/10/19 04:56 Baso % (Auto) 0.1 % (0-2) 07/10/19 04:56 Absolute Neuts (auto) 17.3 10^3/uL (1.7-8.2) H 07/10/19 04:56 Absolute Lymphs (auto) 1.3 10^3/uL (0.5-4.7) 07/10/19 04:56 Absolute Monos (auto) 0.6 10^3/uL (0.1-1.4) 07/10/19 04:56 Absolute Eos (auto) 0.0 10^3/uL (0.0-0.6) 07/10/19 04:56 Absolute Basos (auto) 0.0 10^3/uL (0.0-0.2) 07/10/19 04:56 Seg Neutrophils % 89.9 % (42-78) H 07/10/19 04:56 Carbonic Acid 1.45 mmol/L (1.05-1.35) H 07/08/19 15:56 HCO3/H2CO3 Ratio 21:1 07/08/19 15:56 ABG pH 7.43 (7.35-7.45) 07/08/19 15:56 ABG pCO2 48.2 mmHg (35-45) H 07/08/19 15:56 ABG pO2 67.1 mmHg (80-100) L 07/08/19 15:56 ABG HCO3 31.1 mmol/L (20-24) H 07/08/19 15:56 ABG Total CO2 32.6 mmol/L (21-25) H 07/08/19 15:56 ABG O2 Saturation 93.6 % (94-98) L 07/08/19 15:56 ABG Base Excess 5.8 mmol/L 07/08/19 15:56 FiO2 ROOM AIR 07/08/19 15:56 Sodium 135.8 mmol/L (137-145) L 07/08/19 14:15 Potassium 4.4 mmol/L (3.6-5.0) 07/08/19 14:15 Chloride 96 mmol/L (98-107) L 07/08/19 14:15 Carbon Dioxide 34 mmol/L (22-30) H 07/08/19 14:15 Anion Gap 6 (5-19) 07/08/19 14:15 BUN 8 mg/dL (7-20) 07/08/19 14:15 Creatinine 0.52 mg/dL (0.52-1.25) 07/08/19 14:15 Est GFR ( Amer) > 60 (>60) 07/08/19 14:15 Est GFR (MDRD) Non-Af > 60 (>60) 07/08/19 14:15 Glucose 267 mg/dL (75-110) H 07/08/19 14:15 POC Glucose 96 mg/dL (70-110) 07/13/19 11:47 Hemoglobin A1c % 9.7 % (4.7-6.0) H 07/09/19 04:41 Calcium 8.5 mg/dL (8.4-10.2) 07/08/19 14:15 Magnesium 2.3 mg/dL (1.6-2.3) 07/09/19 04:41 Total Bilirubin 0.5 mg/dL (0.2-1.3) 07/08/19 14:15 Direct Bilirubin 0.0 mg/dL (0.0-0.4) 07/08/19 14:15 Neonat Total Bilirubin Not Reportable 07/08/19 14:15 Neonat Direct Bilirubin Not Reportable 07/08/19 14:15 Neonat Indirect Bili Not Reportable 07/08/19 14:15 AST 26 U/L (14-36) 07/08/19 14:15 ALT 23 U/L (<35) 07/08/19 14:15 Alkaline Phosphatase 105 U/L (38-126) 07/08/19 14:15 Troponin I 0.016 ng/mL 07/09/19 12:50 NT-Pro-B Natriuret Pep 308 pg/mL (<125) H 07/08/19 14:15 Total Protein 7.5 g/dL (6.3-8.2) 07/08/19 14:15 Albumin 3.3 g/dL (3.5-5.0) L 07/08/19 14:15 Triglycerides 145 mg/dL (<150) 07/09/19 04:41 Cholesterol 230.55 mg/dL (0-200) H 07/09/19 04:41 LDL Cholesterol Direct 165 mg/dL (<100) H 07/09/19 04:41 VLDL Cholesterol 29.0 mg/dL (10-31) 07/09/19 04:41 HDL Cholesterol 53 mg/dL (>40) 07/09/19 04:41 Lipase 101.5 U/L (23-300) 07/09/19 04:41 TSH 0.72 uIU/mL (0.47-4.68) 07/09/19 04:41 Urine Color STRAW 07/09/19 18:27 Urine Appearance CLEAR 07/09/19 18:27 Urine pH 6.0 (5.0-9.0) 07/09/19 18:27 Ur Specific [place] 1.018 07/09/19 18:27 Urine Protein 30 mg/dL (NEGATIVE) H 07/09/19 18:27 Urine Glucose (UA) >=500 mg/dL (NEGATIVE) H 07/09/19 18:27 Urine Ketones NEGATIVE mg/dL (NEGATIVE) 07/09/19 18:27 Urine Blood NEGATIVE (NEGATIVE) 07/09/19 18:27 Urine Nitrite NEGATIVE (NEGATIVE) 07/09/19 18:27 Urine Bilirubin NEGATIVE (NEGATIVE) 07/09/19 18:27 Urine Urobilinogen NEGATIVE mg/dL (<2.0) 07/09/19 18:27 Ur Leukocyte Esterase NEGATIVE (NEGATIVE) 07/09/19 18:27 Urine WBC (Auto) 0 /HPF 07/09/19 18:27 Squamous Epi Cells Auto <1 /HPF 07/09/19 18:27 Urine Creatinine 37.7 mg/dL (15-278) 07/09/19 18:27 Urine Total Protein 28.1 mg/dL (<12) H 07/09/19 18:27 Urine Ascorbic Acid NEGATIVE (NEGATIVE) 07/09/19 18:27 Influenza A (Rapid) NEGATIVE (NEGATIVE) 07/09/19 15:42 Influenza B (Rapid) NEGATIVE (NEGATIVE) 07/09/19 15:42 07/08/19 07/08/19 07/09/19 14:15 14:15 12:50 Troponin I 0.016 0.016 NT-Pro-B Natriuret Pep 308 H Impressions: Chest X-Ray 07/08/19 13:54 IMPRESSION: Enlarged cardiac silhouette with prominent interstitium, possible mild interstitial edema or atypical infection. Recommend correlation with symptoms. No focal consolidation. No pleural effusion. Plan Time Spent: Greater than 30 Minutes Stroke Is this a Stroke Patient?: No Acute Heart Failure - Is this a Heart Failure Patient?: No
[2019-07-13 12:27] VITALS: BP 93/48
[2019-07-14] MEDS ORDERED: GLYBURIDE 5 MG TABLET PO SCH (08:00)
== END 2019-07-13 12:55 | disposition home or self-care (01) | DRG 189 ==
LOC: ER 13:31 → INTOOBSV 16:22 → EH 16:22 → 4N 20:03 → OBSVTOIN 07-11 12:55
PROVIDERS: ADMIT Internal Medicine; ATTEND Internal Medicine
DX: J96.01 Acute respiratory failure with hypoxia (principal); J45.41 Moderate persistent asthma with (acute) exacerbation; Z68.43 Body mass index [BMI] 50.0-59.9, adult; E11.65 Type 2 diabetes mellitus with hyperglycemia; E78.00 Pure hypercholesterolemia, unspecified; I10 Essential (primary) hypertension; E66.01 Morbid (severe) obesity due to excess calories; Z79.899 Other long term (current) drug therapy; Z79.84 Long term (current) use of oral hypoglycemic drugs; Z79.82 Long term (current) use of aspirin; Z59.9 Problem related to housing and economic circumstances, unspecified
CPT/HCPCS: 36415; 71046; 80053; 80061; 81001; 82570; 82803; 82962; 83036; 83690; 83735; 83880; 84156; 84443; 84484; 85025; 85027; 87040; 87804; 93005; 93010; 93306; 94640; 94761; 94799; 96374; 96375; 99285; G0378; J0360; J1815; J1956; J2920; J2930; J3475; J3490; J7512; J7620

== ENCOUNTER → 2019-08-12 | Outpatient (CLI) | payer OTHER ==
[2019-08-12 15:54] LABS: ABSOLUTE BASOPHILS # (AUTO) 0.1 10^3/uL (0.0-0.2); ABSOLUTE EOSINOPHILS # (AUTO) 0.1 10^3/uL (0.0-0.6); ABSOLUTE LYMPHOCYTES (AUTO) 2.4 10^3/uL (0.5-4.7); ABSOLUTE MONOCYTES (AUTO) 0.6 10^3/uL (0.1-1.4); EOSINOPHILS % (AUTO) 1.5 % (0-6); HEMATOCRIT 42.7 % (36.0-47.0); HEMOGLOBIN 13.9 g/dL (12.0-15.5); MEAN CORPUSCULAR HEMOGLOBIN 27.1 pg (27.0-33.4); MEAN CORPUSCULAR HGB CONC 32.6 g/dL (32.0-36.0); MEAN CORPUSCULAR VOLUME 83 fl (80-97); MONOCYTES % (AUTO) 7.6 % (3-13); PLATELET COUNT 384 10^3/uL (150-450); RED BLOOD COUNT 5.14 10^6/uL (3.72-5.28); RED CELL DISTRIBUTION WIDTH 17.6 % (11.5-14.0); SEGMENTED NEUTROPHILS % (AUTO) 60.9 % (42-78); TOTAL CELLS COUNTED % (AUTO) 100 %; WHITE BLOOD COUNT 8.2 10^3/uL (4.0-10.5)
[2019-08-12 16:16] LABS: ALBUMIN 4.2 g/dL (3.5-5.0); ALKALINE PHOSPHATASE 100 U/L (38-126); ANION GAP 11 (5-19); ASPARTATE AMINO TRANSFERASE 22 U/L (14-36); BILIRUBIN,DIRECT 0.1 mg/dL (0.0-0.4); BILIRUBIN,TOTAL 0.7 mg/dL (0.2-1.3); BLOOD UREA NITROGEN 8 mg/dL (7-20); CALCIUM 9.3 mg/dL (8.4-10.2); CARBON DIOXIDE 25 mmol/L (22-30); CHLORIDE 101 mmol/L (98-107); CHOLESTEROL 223.83 mg/dL (0-200); GLUCOSE 124 mg/dL (75-110); POTASSIUM 4.5 mmol/L (3.6-5.0); TRIGLYCERIDES 279 mg/dL (<150)
[2019-08-12 16:27] LABS: DIRECT LDL 153 mg/dL (<100)
[2019-08-12 16:32] LABS: VLDL CHOLESTEROL 55.8 mg/dL (10-31)
== END ==
LOC: OD 14:16
DX: Z00.00 Encounter for general adult medical examination without abnormal findings (principal)
CPT/HCPCS: 36415; 80053; 80061; 83036; 85025

== ENCOUNTER → 2019-12-20 | Outpatient (CLI) | payer OTHER ==
[2019-12-20 12:47] LABS: ANION GAP 6 (5-19); BLOOD UREA NITROGEN 11 mg/dL (7-20); CARBON DIOXIDE 30 mmol/L (22-30); CHLORIDE 98 mmol/L (98-107); CHOLESTEROL 213.47 mg/dL (0-200); GLUCOSE 140 mg/dL (75-110); TRIGLYCERIDES 398 mg/dL (<150)
[2019-12-20 13:00] LABS: DIRECT LDL 118 mg/dL (<100)
[2019-12-20 13:05] LABS: VLDL CHOLESTEROL 79.6 mg/dL (10-31)
== END ==
LOC: CCC 11:15
PROVIDERS: ATTEND Internal Medicine
DX: E78.5 Hyperlipidemia, unspecified (principal); E11.9 Type 2 diabetes mellitus without complications
CPT/HCPCS: 36415; 80048; 80061; 83036